=== PATIENT | male | born 1975 | race Caucasian/White ===

== ENCOUNTER 2020-08-29 07:29 | Outpatient (CLI) | payer OTHER ==
[2020-08-29 15:21] LABS: CHOL/HDL RATIO 6.6 (<5.0); CHOLESTEROL 245 mg/dL; HDL CHOLESTEROL 37 mg/dL; LDL CHOLESTEROL,CALCULATED 161 mg/dL; LDL/HDL RATIO 4.4 (<3.6); TRIGLYCERIDES 236 mg/dL; VLDL CHOLESTEROL 47 mg/dL
== END 2020-08-29 07:30 | disposition home or self-care (01) ==
LOC: LAB.S 07:29
PROVIDERS: ATTEND Physician Assistant
DX: Z00.00 Encounter for general adult medical examination without abnormal findings (principal); I10 Essential (primary) hypertension
CPT/HCPCS: 36415; 80061; 83721

== ENCOUNTER 2021-09-08 08:00 | Outpatient (CLI) | payer OTHER ==
--- NOTE | 2021-09-08 12:14 | XRAY Report ---
PROCEDURE: Chest 2 View X-Ray INDICATIONS: FATIGUE, ACUTE COUGH TECHNIQUE: 2 view(s) of the chest. COMPARISON: None. FINDINGS: Surgical changes and devices: None. Lungs and pleura: No pleural effusions or pneumothorax. Lungs are clear. Mediastinum: Mediastinal contours are normal. Heart size is normal. Bones and chest wall: No suspicious bony abnormalities. Soft tissues appear unremarkable. IMPRESSION: No evidence acute pulmonary process. Reviewed by: Manolo Portillo MD on 09/08/2021 12:12 PM PDT Approved by: Manolo Portillo MD on 09/08/2021 12:12 PM PDT Station ID: [id number]
== END 2021-09-08 23:59 | disposition home or self-care (01) ==
LOC: DI.S 08:00
PROVIDERS: ATTEND Registered Nurse
DX: R53.83 Other fatigue (principal); R05.1 Acute cough